=== PATIENT | female | born 1970 | race African-American/Black ===

== ENCOUNTER 2017-08-23 14:48 | Day surgery (SDC) | payer BC ==
[2017-08-23] MEDS ORDERED: IRON SUCROSE INJECTION 200 MG in SODIUM CHLORIDE 100 ML IVPB ONE (15:00)
[2017-08-23 17:43] VITALS: BMI 40.7
[2017-08-23 18:44] VITALS: TEMP 98.2
[2017-08-23 18:46] VITALS: BP 131/75; PULSE 81
== END 2017-08-23 19:17 | disposition home or self-care (01) ==
LOC: JONCNONCHE 14:48 → J7W 16:55 → JONCNONCHE 19:17
PROVIDERS: ATTEND Internal Medicine Hematology & Oncology
PROC: 3E033GC Introduction of Other Therapeutic Substance into Peripheral Vein, Percutaneous Approach (ICD-10-PCS; principal; 2017-08-23)
DX: D50.9 Iron deficiency anemia, unspecified (principal); Z98.84 Bariatric surgery status
CPT/HCPCS: 96365; J1756

== ENCOUNTER 2017-09-05 07:23 | Day surgery (SDC) | payer BC ==
[2017-09-05] MEDS ORDERED: IRON SUCROSE INJECTION 200 MG in SODIUM CHLORIDE 100 ML IVPB ONE (13:00)
[2017-09-05 16:52] VITALS: TEMP 98.5
[2017-09-05 18:14] VITALS: BP 134/79; PULSE 65
== END 2017-09-05 16:20 | disposition home or self-care (01) ==
LOC: JONCNONCHE 07:23 → J7W 16:42
PROVIDERS: ATTEND Internal Medicine Hematology & Oncology
PROC: 3E033GC Introduction of Other Therapeutic Substance into Peripheral Vein, Percutaneous Approach (ICD-10-PCS; principal; 2017-09-05)
DX: D50.9 Iron deficiency anemia, unspecified (principal); Z98.84 Bariatric surgery status
CPT/HCPCS: 96365; 96417; J1756

== ENCOUNTER 2017-09-12 07:32 | Day surgery (SDC) | payer BC ==
[2017-09-12] MEDS ORDERED: IRON SUCROSE INJECTION 200 MG in SODIUM CHLORIDE 100 ML IVPB ONE (13:00)
[2017-09-12 18:47] VITALS: TEMP 97.7
[2017-09-12 20:12] VITALS: BP 126/70; PULSE 72
== END 2017-09-12 20:22 | disposition home or self-care (01) ==
LOC: JONCNONCHE 07:32 → J7W 18:00 → JONCNONCHE 20:22
PROVIDERS: ATTEND Internal Medicine Hematology & Oncology
PROC: 3E033GC Introduction of Other Therapeutic Substance into Peripheral Vein, Percutaneous Approach (ICD-10-PCS; principal; 2017-09-12)
DX: D50.9 Iron deficiency anemia, unspecified (principal)
CPT/HCPCS: 96365; J1756

== ENCOUNTER 2017-11-06 07:07 | Day surgery (SDC) | payer BC ==
[2017-11-06] MEDS ORDERED: IRON SUCROSE INJECTION 200 MG in SODIUM CHLORIDE 100 ML IVPB ONE (13:00)
--- NOTE | 2017-11-06 17:40 | PN ---
Progress Note (short form) - Note Progress Note: PAtient seen and examined Feels well.
--- NOTE | 2017-11-06 18:01 | HP ---
[facility] - Chief Complaint Chief Complaint: Here for iv iron infusion. Feels well. Denies any complaints. HAs Lt. shoulder pain History Source: Patient Limitations to Obtaining History: No Limitations - Past Medical History Allergies/Adverse Reactions: Allergies Allergy/AdvReac Type Severity Reaction Status Date / Time No Known Drug Allergies Allergy Verified 08/23/17 17:41 ...LMP: 08/15/17 - Current Medications Current Medications: Home Medications Medication Instructions Recorded NK [No Known Home Medication] 08/04/16 [facility] Physical Exam - Physical Examination General Appearance: Well Nourished, Well Developed, Alert & Oriented x3 Lung: Clear to auscultation, Normal air movement Heart: Regular rate & rhythm, Normal S1, Normal S2 Abdomen: Soft, No tenderness, Normal bowel sounds Extremities: No edema Neurological: Intact [facility] Impression/Plan - Impression/Plan Impression: 46 y/o patient with iron deficiency anemia. On venofer. Needs to f /u with GI/BOW REHAIRER. wii recheck iron studies next visit and CBC. L. shoulder supraspinatus tear on MRI--needs to f/u with orthopaedics.
[2017-11-06 18:24] VITALS: TEMP 98.5
[2017-11-06 18:28] VITALS: BP 138/83; PULSE 67
== END 2017-11-06 21:44 | disposition home or self-care (01) ==
LOC: JONCNONCHE 07:07 → J7W 16:58 → JONCNONCHE 21:44
PROVIDERS: ATTEND Internal Medicine Hematology & Oncology
PROC: 3E033GC Introduction of Other Therapeutic Substance into Peripheral Vein, Percutaneous Approach (ICD-10-PCS; principal; 2017-11-06)
DX: D50.9 Iron deficiency anemia, unspecified (principal)
CPT/HCPCS: 96365; J1756

== ENCOUNTER 2017-11-21 09:08 | Day surgery (SDC) | payer BC ==
[2017-11-21] MEDS ORDERED: IRON SUCROSE INJECTION 200 MG in SODIUM CHLORIDE 100 ML IVPB ONE (17:30)
[2017-11-21 18:30] VITALS: TEMP 98.4
[2017-11-21 19:24] VITALS: BP 132/78; PULSE 79
== END 2017-11-21 19:00 | disposition home or self-care (01) ==
LOC: JONCNONCHE 09:08 → J7W 17:15 → JONCNONCHE 19:00
PROVIDERS: ATTEND Internal Medicine Hematology & Oncology
PROC: 3E033GC Introduction of Other Therapeutic Substance into Peripheral Vein, Percutaneous Approach (ICD-10-PCS; principal; 2017-11-21)
DX: D50.9 Iron deficiency anemia, unspecified (principal)
CPT/HCPCS: 96365; J1756

== ENCOUNTER 2018-04-16 07:42 | Day surgery (SDC) | payer BC ==
[2018-04-16] MEDS ORDERED: IRON SUCROSE INJECTION 200 MG in SODIUM CHLORIDE 100 ML IVPB ONE (12:00)
[2018-04-16 17:46] VITALS: TEMP 98.2
[2018-04-16 18:21] VITALS: BP 143/85; PULSE 74
--- NOTE | 2018-04-16 19:09 | HP ---
[facility] - Chief Complaint Chief Complaint: 47 y/o patient with iron deficieny anemia, on venofer. HCT increasing from 26-31. Flow negative History Source: Patient - Past Medical History Allergies/Adverse Reactions: Allergies Allergy/AdvReac Type Severity Reaction Status Date / Time No Known Drug Allergies Allergy Verified 08/23/17 17:41 Pulmonary: Yes: Bronchitis ...LMP: 08/15/17 - Current Medications Current Medications: Home Medications Medication Instructions Recorded NK [No Known Home Medication] 08/04/16 [facility] Physical Exam - Physical Examination Vital Signs: Vital Signs Period Temp Pulse Resp BP Sys/[place] Pulse Ox Last 24 Hr 97.9 F-98.2 F 74-82 16-18 123-143/84-85 General Appearance: Well Nourished, Alert & Oriented x3 Lung: Clear to auscultation, Normal air movement Heart: Regular rate & rhythm, Normal S2 Abdomen: Soft, No tenderness, Normal bowel sounds Extremities: No edema Neurological: Intact [facility]ellite Impression/Plan - Impression/Plan Impression: 47 y/o patient with h/o gastric bypass, menorrhagia, iron deficiency anemia. On venofer. will dose B12. reiterated need to follow up with RISK ADVISOR/GI
== END 2018-04-16 18:46 | disposition home or self-care (01) ==
LOC: JONCNONCHE 07:42
PROVIDERS: ATTEND Internal Medicine Hematology & Oncology
PROC: 3E033GC Introduction of Other Therapeutic Substance into Peripheral Vein, Percutaneous Approach (ICD-10-PCS; principal; 2018-04-16)
DX: D50.9 Iron deficiency anemia, unspecified (principal); I10 Essential (primary) hypertension
CPT/HCPCS: 96365; J1756

== ENCOUNTER 2018-11-16 07:13 | Day surgery (SDC) | payer BC ==
[2018-11-16] MEDS ORDERED: DIPHENHYDRAMINE 50 MG in SODIUM CHLORIDE 100 ML IVPB ONE (12:00)
[2018-11-16] MEDS ORDERED: ACETAMINOPHEN 325 MG TABLET (FP) PO ONE (12:00)
[2018-11-16] MEDS ORDERED: FERRIC CARBOXYMALTOSE 750 MG in SODIUM CHLORIDE 250 ML IVPB ONE (12:30)
[2018-11-16 18:20] VITALS: BP 130/72; PULSE 74; TEMP 98.2
== END 2018-11-16 18:00 | disposition home or self-care (01) ==
LOC: JONCNONCHE 07:13 → J7W 17:01 → JONCNONCHE 18:00
PROVIDERS: ATTEND Internal Medicine Hematology & Oncology
PROC: 3E033GC Introduction of Other Therapeutic Substance into Peripheral Vein, Percutaneous Approach (ICD-10-PCS; principal; 2018-11-16)
DX: D50.9 Iron deficiency anemia, unspecified (principal)
CPT/HCPCS: 96365; J1439

== ENCOUNTER → 2018-11-23 | Day surgery (SDC) | payer BC ==
[~2018-11-23] MED LIST: ACETAMINOPHEN 325 MG TABLET (FP) PO ONE; DIPHENHYDRAMINE 50 MG in SODIUM CHLORIDE 100 ML IVPB ONE; FERRIC CARBOXYMALTOSE 750 MG in SODIUM CHLORIDE 250 ML IVPB ONE
[2018-11-23 18:31] VITALS: BP 127/87; PULSE 68; TEMP 98.2
== END | disposition home or self-care (01) ==
LOC: JONCNONCHE 05:44
PROVIDERS: ATTEND Internal Medicine Hematology & Oncology
PROC: 3E033GC Introduction of Other Therapeutic Substance into Peripheral Vein, Percutaneous Approach (ICD-10-PCS; principal; 2018-11-23)
DX: D50.9 Iron deficiency anemia, unspecified (principal)
CPT/HCPCS: 96365; J1439

== ENCOUNTER 2019-09-06 16:26 | Day surgery (SDC) | payer BC ==
[2019-09-06] MEDS ORDERED: FERRIC CARBOXYMALTOSE 750 MG in SODIUM CHLORIDE 250 ML IVPB ONE (16:30)
[2019-09-06 17:03] LABS: BASO % 5.9 % (0-2.0); HEMATOCRIT 27.3 % (32.4-45.2); HEMOGLOBIN 8.6 GM/dL (10.7-15.3); LYMPH % 25.6 % (8-40); MCH 23.8 pg (25.7-33.7); MCHC 31.5 g/dl (32.0-36.0); MEAN CELL VOLUME 75.4 fl (80-96); MEAN PLT VOLUME 9.4 fl (7.5-11.1); MONO % 15.2 % (3.8-10.2); NEUT % 52.3 % (42.8-82.8); PLATELET COUNT 251 K/MM3 (134-434); RBC 3.61 M/mm3 (3.60-5.2); RDW 19.3 % (11.6-15.6); WHITE BLOOD COUNT 4.5 K/mm3 (4.0-10.0)
[2019-09-06 17:17] LABS: ALBUMIN 3.4 g/dl (3.4-5.0); BILIRUBIN,TOTAL 0.2 mg/dL (0.2-1); BLOOD UREA NITROGEN 10.7 mg/dL (7-18); CALCIUM 8.6 mg/dL (8.5-10.1); CREATININE 0.8 mg/dL (0.55-1.3); TOT PROT 7.4 g/dl (6.4-8.2)
[2019-09-06 18:03] VITALS: TEMP 98.3
[2019-09-06 18:04] VITALS: BP 139/89; PULSE 81
[2019-09-06 19:52] LABS: ANISOCYTOSIS 1+
== END 2019-09-06 18:00 | disposition home or self-care (01) ==
LOC: JONCNONCHE 16:26 → EDSTATUS 16:26 → J7W 16:35 → JONCNONCHE 18:00
PROVIDERS: ATTEND Internal Medicine Hematology & Oncology
PROC: 3E033GC Introduction of Other Therapeutic Substance into Peripheral Vein, Percutaneous Approach (ICD-10-PCS; principal; 2019-09-06)
DX: D50.9 Iron deficiency anemia, unspecified (principal)
CPT/HCPCS: 36415; 80053; 82607; 82728; 83540; 83550; 85025; 96365; J1439

== ENCOUNTER 2019-09-13 09:15 | Day surgery (SDC) | payer BC ==
[2019-09-13] MEDS ORDERED: FERRIC CARBOXYMALTOSE 750 MG in SODIUM CHLORIDE 250 ML IVPB ONE (10:00)
[2019-09-13 14:48] VITALS: BP 117/78; PULSE 81; TEMP 98
== END 2019-09-13 11:15 | disposition home or self-care (01) ==
LOC: JONCNONCHE 09:15 → J7W 09:28 → JONCNONCHE 11:15
PROVIDERS: ATTEND Internal Medicine Hematology & Oncology
PROC: 3E033GC Introduction of Other Therapeutic Substance into Peripheral Vein, Percutaneous Approach (ICD-10-PCS; principal; 2019-09-13)
DX: D50.9 Iron deficiency anemia, unspecified (principal)
CPT/HCPCS: 96365; 96372; J1439

== ENCOUNTER 2020-04-08 07:11 | Day surgery (SDC) | payer BC ==
[2020-04-08] MEDS ORDERED: FERRIC CARBOXYMALTOSE 750 MG in SODIUM CHLORIDE 250 ML IVPB ONE (10:00)
[2020-04-08 17:41] VITALS: TEMP 98.7
[2020-04-08 17:41] LABS: BASO % 3.8 % (0-2.0); EOS % 0.9 % (0-4.5); HEMATOCRIT 32.1 % (32.4-45.2); HEMOGLOBIN 10.1 GM/dL (10.7-15.3); LYMPH % 19.8 % (8-40); MCH 24.2 pg (25.7-33.7); MCHC 31.3 g/dl (32.0-36.0); MEAN CELL VOLUME 77.2 fl (80-96); MONO % 7.7 % (3.8-10.2); NEUT % 67.8 % (42.8-82.8); PLATELET COUNT 284 K/MM3 (134-434); RBC 4.16 M/mm3 (3.60-5.2); RDW 19.2 % (11.6-15.6); WHITE BLOOD COUNT 4.9 K/mm3 (4.0-10.0)
[2020-04-08 17:43] VITALS: BP 119/77; PULSE 70
[2020-04-08 18:01] LABS: ALBUMIN 3.6 g/dl (3.4-5.0); BILIRUBIN,TOTAL 0.3 mg/dL (0.2-1); BLOOD UREA NITROGEN 10.5 mg/dL (7-18); CALCIUM 8.8 mg/dL (8.5-10.1); CREATININE 0.8 mg/dL (0.55-1.3); POTASSIUM 4.4 mmol/L (3.5-5.1); TOT PROT 7.7 g/dl (6.4-8.2)
== END 2020-04-08 18:15 | disposition home or self-care (01) ==
LOC: JONCNONCHE 07:11
PROVIDERS: ATTEND Internal Medicine Hematology & Oncology
PROC: 3E033GC Introduction of Other Therapeutic Substance into Peripheral Vein, Percutaneous Approach (ICD-10-PCS; principal; 2020-04-08)
DX: D50.9 Iron deficiency anemia, unspecified (principal)
CPT/HCPCS: 36415; 80053; 82728; 83540; 83550; 85025; 96365; J1439

== ENCOUNTER 2020-04-16 07:18 | Day surgery (SDC) | payer BC ==
[2020-04-16] MEDS ORDERED: FERRIC CARBOXYMALTOSE 750 MG in SODIUM CHLORIDE 250 ML IVPB ONE (10:00)
[2020-04-16 17:17] VITALS: BP 131/77; PULSE 91
[2020-04-16 17:18] VITALS: TEMP 97.9
== END 2020-04-16 18:01 | disposition home or self-care (01) ==
LOC: JONCNONCHE 07:18
PROVIDERS: ATTEND Internal Medicine Hematology & Oncology
PROC: 3E033GC Introduction of Other Therapeutic Substance into Peripheral Vein, Percutaneous Approach (ICD-10-PCS; principal; 2020-04-16)
DX: D50.9 Iron deficiency anemia, unspecified (principal)
CPT/HCPCS: 96365; J1439

== ENCOUNTER 2020-08-06 17:00 | Day surgery (SDC) | payer BC ==
[~2020-08-06 17:00] MED LIST changes: -ACETAMINOPHEN 325 MG TABLET (FP) PO ONE; -DIPHENHYDRAMINE 50 MG in SODIUM CHLORIDE 100 ML IVPB ONE
[2020-08-06 17:21] VITALS: TEMP 97.6
[2020-08-06 17:56] VITALS: BP 127/81; PULSE 61
== END 2020-08-06 17:45 | disposition home or self-care (01) ==
LOC: JONCNONCHE 17:00
PROVIDERS: ATTEND Internal Medicine Hematology & Oncology
PROC: 3E033GC Introduction of Other Therapeutic Substance into Peripheral Vein, Percutaneous Approach (ICD-10-PCS; principal; 2020-08-06)
DX: D50.9 Iron deficiency anemia, unspecified (principal)
CPT/HCPCS: 96365; J1439

== ENCOUNTER 2020-08-13 07:15 | Day surgery (SDC) | payer BC ==
[2020-08-13] MEDS ORDERED: FERRIC CARBOXYMALTOSE 750 MG in SODIUM CHLORIDE 250 ML IVPB ONE (10:00)
[2020-08-13 11:33] VITALS: TEMP 98.1
[2020-08-13 11:35] VITALS: BP 122/79; PULSE 69
== END 2020-08-13 10:30 | disposition home or self-care (01) ==
LOC: JONCNONCHE 07:15
PROVIDERS: ATTEND Internal Medicine Hematology & Oncology
PROC: 3E033GC Introduction of Other Therapeutic Substance into Peripheral Vein, Percutaneous Approach (ICD-10-PCS; principal; 2020-08-13)
DX: D50.9 Iron deficiency anemia, unspecified (principal)
CPT/HCPCS: 96365; J1439

== ENCOUNTER 2021-03-04 10:30 | Day surgery (SDC) | payer BC ==
[2021-03-04 16:06] VITALS: TEMP 98.2
[2021-03-04 16:07] VITALS: BP 121/78; PULSE 81
== END 2021-03-04 12:00 | disposition home or self-care (01) ==
LOC: JONCNONCHE 10:30
PROVIDERS: ATTEND Internal Medicine Hematology & Oncology
PROC: 3E033GC Introduction of Other Therapeutic Substance into Peripheral Vein, Percutaneous Approach (ICD-10-PCS; principal; 2021-03-04)
DX: D50.9 Iron deficiency anemia, unspecified (principal)
CPT/HCPCS: 96365; J1439

== ENCOUNTER 2021-03-11 16:15 | Day surgery (SDC) | payer BC ==
[2021-03-11 17:43] VITALS: BP 127/81; PULSE 66
[2021-03-11 17:46] VITALS: TEMP 98.3
== END 2021-03-11 17:30 | disposition home or self-care (01) ==
LOC: JONCCHEMO 16:15
PROVIDERS: ATTEND Internal Medicine Hematology & Oncology
DX: D50.9 Iron deficiency anemia, unspecified (principal)
CPT/HCPCS: 96365; J1439

== ENCOUNTER 2021-10-26 06:48 | Day surgery (SDC) | payer BC ==
[2021-10-26] MEDS ORDERED: FERRIC CARBOXYMALTOSE 750 MG in SODIUM CHLORIDE 250 ML IVPB ONE (16:30)
[2021-10-26 17:13] VITALS: BP 126/75; PULSE 87; TEMP 98.7
== END 2021-10-26 17:25 | disposition home or self-care (01) ==
LOC: JONCNONCHE 06:48
PROVIDERS: ATTEND Internal Medicine Hematology & Oncology
PROC: 3E033GC Introduction of Other Therapeutic Substance into Peripheral Vein, Percutaneous Approach (ICD-10-PCS; principal; 2021-10-26)
DX: D50.9 Iron deficiency anemia, unspecified (principal)
CPT/HCPCS: 96365; J1439

== ENCOUNTER 2021-11-02 07:22 | Day surgery (SDC) | payer BC ==
[2021-11-02] MEDS ORDERED: FERRIC CARBOXYMALTOSE 750 MG in SODIUM CHLORIDE 250 ML IVPB ONE (11:00)
[2021-11-02 18:14] VITALS: BP 127/81; PULSE 74; TEMP 98.3
== END 2021-11-02 18:50 | disposition home or self-care (01) ==
LOC: JONCNONCHE 07:22
PROVIDERS: ATTEND Internal Medicine Hematology & Oncology
PROC: 3E033GC Introduction of Other Therapeutic Substance into Peripheral Vein, Percutaneous Approach (ICD-10-PCS; principal; 2021-11-02)
DX: D50.9 Iron deficiency anemia, unspecified (principal)
CPT/HCPCS: 96365; J1439

== ENCOUNTER 2022-04-19 16:45 | Day surgery (SDC) | payer BC ==
[2022-04-19] MEDS ORDERED: FERRIC CARBOXYMALTOSE 750 MG in SODIUM CHLORIDE 250 ML IVPB ONE (17:00)
[2022-04-19 18:57] VITALS: BP 111/63; PULSE 64; RESP 16; TEMP 98.4
== END 2022-04-19 18:50 | disposition home or self-care (01) ==
LOC: JONCNONCHE 16:45
PROVIDERS: ATTEND Internal Medicine Hematology & Oncology
PROC: 3E033GC Introduction of Other Therapeutic Substance into Peripheral Vein, Percutaneous Approach (ICD-10-PCS; principal; 2022-04-19)
DX: D50.9 Iron deficiency anemia, unspecified (principal); K90.9 Intestinal malabsorption, unspecified; N92.1 Excessive and frequent menstruation with irregular cycle
CPT/HCPCS: 96365; J1439

== ENCOUNTER 2022-04-26 07:51 | Day surgery (SDC) | payer BC ==
[2022-04-26] MEDS ORDERED: FERRIC CARBOXYMALTOSE 750 MG in SODIUM CHLORIDE 250 ML IVPB ONE (15:00)
[2022-04-26 17:16] VITALS: RESP 18; TEMP 98.9
[2022-04-26 17:43] VITALS: BP 112/69; PULSE 65
== END 2022-04-26 17:55 | disposition home or self-care (01) ==
LOC: JONCNONCHE 07:51
PROVIDERS: ATTEND Internal Medicine Hematology & Oncology
PROC: 3E033GC Introduction of Other Therapeutic Substance into Peripheral Vein, Percutaneous Approach (ICD-10-PCS; principal; 2022-04-26)
DX: D50.9 Iron deficiency anemia, unspecified (principal)
CPT/HCPCS: 96365; J1439

== ENCOUNTER 2022-08-02 09:00 | Inpatient (IN) | payer BC ==
[2022-08-22 17:14] VITALS: BMI 38.0
[2022-08-23] MEDS ORDERED: BUPIVACAINE HCL/PF 0.5% (5MG/ML) 10 ML VIAL ONE (08:08)
[2022-08-23] MEDS ORDERED: BUPIVACAINE LIPOSOME/PF (EXPAREL) 266 MG/20 ML VIAL ONE (08:08)
[2022-08-23] MEDS ORDERED: MIDAZOLAM HCL 2 MG/2 ML SINGLE DOSE VIAL ONE (08:09)
[2022-08-23] MEDS ORDERED: FENTANYL CITRATE/PF 50 MCG/ML VIAL ONE ×3 (08:12→10:56)
[2022-08-23] MEDS ORDERED: LIDOCAINE HCL/PF 2% SDV 5ML VIAL ONE (09:02)
[2022-08-23] MEDS ORDERED: DEXAMETHASONE SOD PHOSPHATE 4 MG/1 ML VIAL ONE (09:02)
[2022-08-23] MEDS ORDERED: ROCURONIUM BROMIDE 50 MG/5 ML SYRINGE ONE (09:02)
[2022-08-23] MEDS ORDERED: PROPOFOL 20 ML ONE (09:02)
[2022-08-23] MEDS ORDERED: ONDANSETRON 4 MG/2 ML VIAL ONE (09:02)
[2022-08-23] MEDS ORDERED: ceFAZolin SODIUM 1 GM VIAL ONE (09:35)
[2022-08-23] MEDS ORDERED: ceFAZolin SODIUM 1 GM VIAL IVPB ONE (09:37)
[2022-08-23] MEDS ORDERED: GLYCOPYRROLATE 0.2 MG/1 ML VIAL ONE ×2 (09:56→10:49)
[2022-08-23] MEDS ORDERED: DESFLURANE GAS 240 ML BOTTLE IH ONE (10:30)
[2022-08-23] MEDS ORDERED: ACETAMINOPHEN INJECTION 100 ML IVPB ONE (10:31)
[2022-08-23] MEDS ORDERED: ONDANSETRON 4 MG/2 ML VIAL IVPUSH PRN ×2 (10:37→11:38)
[2022-08-23] MEDS ORDERED: ACETAMINOPHEN 1000 MG/100 ML BAG IVPB PRN (10:37)
[2022-08-23] MEDS ORDERED: LACTATED RINGERS SOLUTION 1,000 ML IV SCH (10:45)
[2022-08-23] MEDS ORDERED: SEVOFLURANE 250 ML BTL ONE (10:46)
[2022-08-23] MEDS ORDERED: KETOROLAC TROMETHAMINE 30 MG/1 ML VIAL ONE (10:47)
[2022-08-23] MEDS ORDERED: NEOSTIGMINE METHYLSULFATE 0.5 MG/1 ML - 10 ML MDV ONE (10:48)
[2022-08-23] MEDS ORDERED: HYDROmorphone *PCA* 10MG/50ML DISP.SYRIN ONE (11:15)
[2022-08-23] MEDS: HYDROmorphone *PCA* 10MG/50ML DISP.SYRIN PCA SCH ×3 (11:25→21:14)
[2022-08-23] MEDS ORDERED: IBUPROFEN 600 MG TABLET (FP) PO PRN (11:38)
[2022-08-23] MEDS ORDERED: IBUPROFEN 800 MG/8 ML IJ IVPB PRN (11:38)
[2022-08-23] MEDS ORDERED: oxyCODONE HCL 5 MG TABLET PO PRN (11:38)
[2022-08-23] MEDS ORDERED: ELECTROLYTE-148 SOLN 1,000 ML IV SCH (11:45)
[2022-08-23] MEDS: CEFAZOLIN SODIUM 2 GM in DEXTROSE 5%-WATER - 50 ML IVPB SCH (17:18)
[2022-08-23] MEDS ORDERED: ceFAZolin 2 GRAM PREMIX BAG IVPB SCH (18:00)
[2022-08-24 00:59] VITALS: RESP 18
[2022-08-24] MEDS: CEFAZOLIN SODIUM 2 GM in DEXTROSE 5%-WATER - 50 ML IVPB SCH ×2 (01:21→09:31)
[2022-08-24 08:52] LABS: HEMATOCRIT 31.4 % (32.4-45.2); HEMOGLOBIN 10.3 GM/dL (10.7-15.3); MCH 27.4 pg (25.7-33.7); MCHC 32.8 g/dl (32.0-36.0); MEAN CELL VOLUME 83.6 fl (80-96); MEAN PLT VOLUME 9.6 fl (7.5-11.1); PLATELET COUNT 260 10^3/uL (134-434); RBC 3.76 M/mm3 (3.60-5.2); RDW 15.1 % (11.6-15.6); WHITE BLOOD COUNT 5.7 K/mm3 (4.0-10.0)
[2022-08-24 09:10] LABS: BLOOD UREA NITROGEN 5.4 mg/dL (7-18); CALCIUM 8.7 mg/dL (8.5-10.1)
[2022-08-24 09:14] LABS: CREATININE 0.7 mg/dL (0.55-1.3)
[2022-08-24] MEDS ORDERED: ENOXAPARIN NA (PORCINE) 40 MG/0.4 ML DISP.SYRIN SQ SCH (10:00)
[2022-08-24] MEDS ORDERED: DOCUSATE SODIUM 100 MG CAPSULE (FP) PO SCH (10:00)
[2022-08-24] MEDS: SIMETHICONE 80 MG TAB.CHEW (FP) PO PRN ×2 (11:45→15:09)
[2022-08-24 14:49] VITALS: BP 129/75; PULSE 63; TEMP 98
== END 2022-08-24 16:00 | disposition home or self-care (01) | DRG 743 ==
LOC: J2C 08-23 04:22 → J3W 08-23 13:26
PROVIDERS: ADMIT Obstetrics & Gynecology; ATTEND Obstetrics & Gynecology
PROC: 0UT70ZZ Resection of Bilateral Fallopian Tubes, Open Approach (ICD-10-PCS; 2022-08-23)
PROC: 0UT20ZZ Resection of Bilateral Ovaries, Open Approach (ICD-10-PCS; 2022-08-23)
PROC: 0UT90ZL Resection of Uterus, Supracervical, Open Approach (ICD-10-PCS; principal; 2022-08-23 09:00)
DX: D25.0 Submucous leiomyoma of uterus (principal); N83.201 Unspecified ovarian cyst, right side; Z85.43 Personal history of malignant neoplasm of ovary
CPT/HCPCS: 36415; 80048; 81025; 85027; 86850; 86900; 86901; 88307-TC; 94760